=== PATIENT | female | born 1960 | race Caucasian/White ===

== ENCOUNTER 2017-08-29 10:10 | Outpatient (CLI) | payer OTHER ==
[2012-07-15 11:50] VITALS: BP 139/82
--- NOTE | 2017-08-30 09:14 | HISTORY AND PHYSICAL REPORT ---
REFERRING PHYSICIAN: Dr. Malissa Tapia Dear Dr. Tapia: HISTORY OF PRESENT ILLNESS: I had the opportunity of seeing Montserrat Boles today as an outpatient at [facility]. 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 She had a steroid injection in her wrist and she says the injection this past July helped somewhat and she is here today to see if there is any other types of therapy or pain control which could be considered. She also has a history of chronic pancreatitis. She has had a discussion regarding a neurostimulator in the past but this was not followed through. She says the pain is severe as 10 over 10 on a visual analog scale and made worse with activity, particular keyboard or typing, better with rest. She does have rest pain. She takes Halethorpe for pancreatitis and for her wrist. She rates her pain as never better than 3 over 10 on a visual analog scale. She describes primarily pain at the mid-portion of the wrist over the lunate. PAST MEDICAL HISTORY: 1. History of bruising easily. 2. Depression. 3. Chronic pancreatitis. 4. Neuropathy. 5. 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 6. Osteoporosis with multiple fractures. 7. Hypertension. PAST SURGICAL HISTORY: 1. Right total knee replacement. 2. Right knee torn ligament repair. 3. ORIF of her left tib-fib. 4. Cholecystectomy. 5. ERCP with pancreatic dual duct stent and subsequent removal. 6. Left elbow ORIF with hardware removal. 7. Partial patellar tendon tear. 8. Distal radius fracture. 9. Left humeral fracture with fixation. CURRENT DAILY MEDICATIONS: 1. Duloxetine 30 mg daily. 2. Gabapentin 100 mg t.i.d. with gabapentin 300 mg at bedtime. 3. Vitamin D 3000 daily. 4. Fluticasone 50 mcg nasally p.r.n. 5. Vitamin B complex once daily. 6. Omeprazole 40 mg daily. 7. Folic acid 1 mg daily. 8. Alendronate 70 mg once weekly. 9. Trazodone 100 mg at bedtime. 10. Halethorpe 5/325 mg p.r.n. taking up to 2 every 4 hours p.r.n. pain. 11. Calcitrate 315-250 mg at bedtime. 12. Multivitamin 1 tablet daily. 13. Creon 12,000 IU t.i.d. ALLERGIES: 1. Nexium. 2. Etomidate. SOCIAL HISTORY: She is a current [id number]-enz-day smoker. She currently drinks approximately 4 drinks per day. She does use marijuana recreationally approximately 6 times a year. She has been for 28 years. She has no children. She lives with her spouse. She completed the 12th grade. She is self-employed. She is not disabled. FAMILY HISTORY: Father with kidney disease and heart disease. Mother with cancer and CVA. REVIEW OF SYSTEMS: In the last month or so, she reports night sweats and feeling depressed. Pain is worsened with any use or movement of her right upper extremity and gradually worsens as the day progresses. Pain is improved with ice and pain medications. PHYSICAL EXAMINATION: General: The patient is well nourished, well developed, and in no apparent distress. Awake, alert, and oriented. HEENT: Pupils are equal, round, and reactive to light and accommodation. Extraocular movements intact. No facial droop. Neck: There is full range of motion of the cervical spine. No evidence of adenopathy. Thyroid is nontender, not enlarged. Carotids are without bruits. Chest: Clear to auscultation bilaterally. Normal chest excursion. Heart: Regular rate and rhythm without murmur. Abdomen: Benign. Normoactive bowel sounds. Motor/sensory: Intact in the upper and lower extremities. Moves all extremities freely. Extremities: Right wrist medial and lateral distraction of the wrist is intact. She has wasting over the anatomic snuffbox. She has complete extensor weakness of the right thumb. There is some atrophy at the wrist joint and a reproducible Tinel's sign over the proximal portion of the wrist and at the radioulnar joint. [employer] strength is diminished. Sensorium is intact. 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 ASSESSMENT: 1. Osteonecrosis with chronic wrist pain, currently on Halethorpe. 2. Chronic pancreatitis. PLAN: At this point, I discussed the possibilities of repeat occasional corticosteroid injections. I furthermore told her that further glucocorticoids in her wrist could result in more degenerative changes over time, particularly in the face of previous necrosis, and that could be considered only for severe flare ups. At this point, I did discuss bone marrow aspirate concentrate/stem cell injection to the wrist and that this was a newer type of therapy that was designed to enhance healing of damaged tissues in the body. We did discuss the use of stem cell therapy in tendons, ligaments, and joints and that an off- label injection of her own stem cell concentrate could be placed in the wrist joint at the area of the damaged site with the attempt of enhancing healing of that area. Finally, I discussed DRG stimulation in general aspects for her pancreatitis, as she has had previous considerations for this therapy. Dr. Tapia, thank you very much for allowing me to take part in the care of this nice lady. I appreciate the opportunity to take part in the care of your patient. I will be happy to see this lady in follow up in the near future. cc: Dr. Malissa ALMENDAREZ
== END 2017-08-29 10:15 ==
LOC: OUT 10:10
PROVIDERS: ATTEND Anesthesiology Pain Medicine
DX: M87.9 Osteonecrosis, unspecified (principal); K86.1 Other chronic pancreatitis
CPT/HCPCS: 99203; 99213